=== PATIENT | male | born 1945 | race Caucasian/White ===

== ENCOUNTER 2016-12-22 19:34 | Emergency (ER) | payer MEDICARE ==
[~2016-12-22] VITALS: Ht 182.9 cm; Wt 87.3 kg
[~2016-12-22 19:34] MED LIST: CARD240C6; IBUP-238 PO; LORTA5 PO; TAB-TAB; TRAZ50TA78; ZOLO25TA
[2016-12-22 19:45] VITALS: BP 167/84; PULSE 72; RESP 12; TEMP 98.8; O2SAT 96
[2016-12-22] MEDS ORDERED: CARD240C6 PO (20:38)
[2016-12-22] MEDS ORDERED: TRAZ50TA12 PO (20:38)
[2016-12-22] MEDS ORDERED: PRED20 PO (20:38)
[2016-12-22] MEDS ORDERED: ASPI81TA11 PO (20:38)
[2016-12-22] MEDS ORDERED: RELP20TA PO (20:38)
[2016-12-22 21:42] LABS: AUTOMATED NEUTROPHIL # 3.7 TH/MM3 (1.8-7.7); BASOPHIL # 0.1 TH/MM3 (0-0.2); BASOPHIL % 0.8 % (0.0-2.0); EOSINOPHIL # 0.1 TH/MM3 (0-0.4); HEMATOCRIT 46.3 % (39.0-51.0); HEMO FLAGS DIFF FINAL; LYMPH % 40.3 % (9.0-44.0); LYMPHOCYTE # 3.2 TH/MM3 (1.0-4.8); MEAN CELL VOLUME 91.2 FL (80.0-100.0); MEAN CORPUSCULAR HEMOGLOBIN 30.8 PG (27.0-34.0); MEAN CORPUSCULAR HGB CONC 33.8 % (32.0-36.0); MONO % 11.2 % (0.0-8.0); NEUT % 46.7 % (16.0-70.0); PLATELET COUNT 137 TH/MM3 (150-450); RED BLOOD COUNT 5.07 MIL/MM3 (4.50-5.90); RED CELL DISTRIBUTION WIDTH 14.1 % (11.6-17.2)
--- NOTE | 2016-12-22 21:48 | PD ---
HPI Chief Complaint: Pain: Acute or Chronic Time Seen by Provider: 21:02 Travel History International Travel<30 days: No Contact w/Intl Traveler<30days: No Traveled to known affect area: No History of Present Illness HPI Patient is a 71 year old male who comes in complaining of pain and discoloration of his right first toe. He says that he noticed it was red this morning and then it turned purple. He says that he is intermittently having pain to the toe. He does not remember any injury to the toe. He says he only has history of high blood pressure. His is concerned he may have a blood clot, though he has never had one before. He does says that he had some tingling to the toe earlier today. PFSH Past Medical History Hx Anticoagulant Therapy: Yes Cardiovascular Problems: Yes Diminished Hearing: Yes Headaches: Yes (CLUSTER HEADACHES) Hypertension: Yes Immunizations Current: Yes Tetanus Vaccination: < 5 Years Influenza Vaccination: Yes Past Surgical History Surgical History: No Previous Surgery Social History Alcohol Use: Yes (RARE) Tobacco Use: Yes (6 CIGS) Substance Use: No Allergies-Medications (Allergen,Severity, Reaction): Coded Allergies: Penicillin (Verified Allergy, Unknown, Anaphylaxis, 12/22/16) Sulfa (Verified Allergy, Unknown, Anaphylaxis, 12/22/16) Reported Meds & Prescriptions Reported Meds & Active Scripts Active Reported Prednisone 20 Mg Tab 20 Mg PO DIRECTED 40 MG twice a day x 3 days, then 20 MG daily x 3 days, then 10 MG daily x 3 days Relpax (Eletriptan) 20 Mg Tab 20 Mg PO ONCE PRN Cardizem CD 24 HR (Diltiazem CD 24 HR) 240 Mg Caper 240 Mg PO DAILY Trazodone (Trazodone HCl) 50 Mg Tab 50 Mg PO HS Aspirin EC (Aspirin) 81 Mg Tabdr 81 Mg PO DAILY Review of Systems Except as stated in HPI: all other systems reviewed are Neg General / Constitutional: No: Fever, Chills HENT: No: Headaches, Lightheadedness Cardiovascular: No: Chest Pain or Discomfort, Palpitations Respiratory: No: Shortness of Breath Gastrointestinal: No: Nausea, Vomiting Musculoskeletal: Positive: Pain Skin: Positive Change in Pigmentation Neurologic: No: Weakness, Dizziness Physical Exam Narrative GENERAL: Awake and alert, in no acute distress. SKIN: Focused skin assessment warm/dry. 4cm circular area of ecchymosis on the plantar side of the right first toe. HEAD: Atraumatic. Normocephalic. EYES: Pupils equal and round. No scleral icterus. ENT: No nasal bleeding or discharge. Mucous membranes pink and moist. NECK: Trachea midline. No JVD. CARDIOVASCULAR: Regular rate and rhythm. No murmur appreciated. RESPIRATORY: No accessory muscle use. Clear to auscultation. Breath sounds equal bilaterally. MUSCULOSKELETAL: No obvious deformities. No clubbing. No cyanosis. No edema. Pedal pulses 2+ bilaterally. NEUROLOGICAL: Awake and alert. No obvious cranial nerve deficits. Motor grossly within normal limits. Normal speech. PSYCHIATRIC: Appropriate mood and affect; insight and judgment normal. Data Data Last Documented VS Vital Signs Date Time Temp Pulse Resp B/P Pulse Ox O2 Delivery O2 Flow Rate FiO2 12/23/16 00:11 72 16 12/23/16 00:10 156/82 97 Room Air 12/22/16 19:45 98.8 Orders Iv Access Insert/Monitor (12/22/16 21:06) Complete Blood Count With Diff (12/22/16 21:06) Comprehensive Metabolic Panel (12/22/16 21:06) Act Partial Throm Time (Ptt) (12/22/16 21:06) Prothrombin Time / Inr (Pt) (12/22/16 21:06) Cta Runoff W Iv Contrast W 3d (12/22/16 ) Foot, Complete ([id number]) (12/22/16 ) Electrocardiogram (12/22/16 ) Iohexol 350 Inj (Omnipaque 350 Inj) (12/22/16 23:00) Labs Laboratory Tests Test 12/22/16 21:28 White Blood Count 8.0 TH/MM3 Red Blood Count 5.07 MIL/MM3 Hemoglobin 15.6 GM/DL Hematocrit 46.3 % Mean Corpuscular Volume 91.2 FL Mean Corpuscular Hemoglobin 30.8 PG Mean Corpuscular Hemoglobin 33.8 % Concent Red Cell Distribution Width 14.1 % Platelet Count 137 TH/MM3 Mean Platelet Volume 8.6 FL Neutrophils (%) (Auto) 46.7 % Lymphocytes (%) (Auto) 40.3 % Monocytes (%) (Auto) 11.2 % Eosinophils (%) (Auto) 1.0 % Basophils (%) (Auto) 0.8 % Neutrophils # (Auto) 3.7 TH/MM3 Lymphocytes # (Auto) 3.2 TH/MM3 Monocytes # (Auto) 0.9 TH/MM3 Eosinophils # (Auto) 0.1 TH/MM3 Basophils # (Auto) 0.1 TH/MM3 CBC Comment DIFF FINAL Differential Comment Prothrombin Time 11.5 SEC Prothromb Time International 1.0 RATIO Ratio Activated Partial 28.2 SEC Thromboplast Time Sodium Level 144 MEQ/L Potassium Level 3.7 MEQ/L Chloride Level 108 MEQ/L Carbon Dioxide Level 29.8 MEQ/L Anion Gap 6 MEQ/L Blood Urea Nitrogen 20 MG/DL Creatinine 1.20 MG/DL Estimat Glomerular Filtration 60 ML/MIN Rate Random Glucose 170 MG/DL Calcium Level 8.9 MG/DL Total Bilirubin 0.7 MG/DL Aspartate Amino Transf 10 U/L (AST/SGOT) Alanine Aminotransferase 24 U/L (ALT/SGPT) Alkaline Phosphatase 65 U/L Total Protein 6.3 GM/DL Albumin 3.2 GM/DL [facility] Medical Decision Making Medical Screen Exam Complete: Yes Emergency Medical Condition: Yes Medical Record Reviewed: Yes Interpretation(s) ECG shows normal sinus rhythm with frequent PVCs Differential Diagnosis Injury versus cellulitis versus necrosis Narrative Course Patient is a 71-year-old male who comes in complaining of pain and discoloration to his toe. Exam shows an area of ecchymosis to the plantar surface of the toe. IV established, labs sent. X-ray performed shows no acute abnormalities. CTA with runoff ordered to check for clots and to check the blood flow. Patient does have pedal pulses. Patient became angry waiting for the scan and the results. He told the nurse she was leaving and he walked out of the emergency department. I had explained to him that we were checking for clots and blood flow to his foot. He was alert and oriented 3. He understood the risks of leaving AGAINST MEDICAL ADVICE. AMA: The risks of leaving against medical advice without further evaluation treatment were discussed with the patient. These risks include cardiac dysfunction, cardiac dysrhythmia, possible heart attack, possible stroke or . The patient indicated understanding of these risks and appeared to have the capacity to make this decision. Diagnosis Primary Impression: Left against medical advice Disposition: 07 AGAINST MEDICAL ADVICE Condition: Stable Peyton Adams MD Dec 22, 2016 21:48
[2016-12-22 21:51] LABS: CHLORIDE 108 MEQ/L (98-107); POTASSIUM 3.7 MEQ/L (3.5-5.1); SODIUM (NA) 144 MEQ/L (136-145)
[2016-12-22 21:56] LABS: ANION GAP 6 MEQ/L (5-15); APTT (PATIENT) 28.2 SEC (24.3-30.1); BICARBONATE 29.8 MEQ/L (21.0-32.0); BLOOD UREA NITROGEN 20 MG/DL (7-18); PROTHROMBIN TIME - PATIENT 11.5 SEC (9.8-11.6)
[2016-12-22 21:58] LABS: ALT (GPT) 24 U/L (12-78)
[2016-12-22 21:59] LABS: AST (GOT) 10 U/L (15-37); GLOMERULAR FILTRATION RATE 60 ML/MIN (>89)
[2016-12-22 22:00] LABS: TOTAL BILIRUBIN ADULT 0.7 MG/DL (0.2-1.0)
[2016-12-22 22:01] LABS: ALKALINE PHOSPHATASE 65 U/L (45-117)
--- NOTE | 2016-12-22 22:19 | RADRPT ---
EXAM DATE/TIME: 12/22/2016 21:13 [facility] COMPARISON: No previous studies available for comparison. INDICATIONS : Right great toe pain. MEDICAL HISTORY : None. SURGICAL HISTORY : None. ENCOUNTER: Initial ACUITY: 1 day PAIN SCORE: 3/10 LOCATION: Right foot, great toe. FINDINGS: Three view examination of the right foot demonstrates no soft tissue swelling, dislocation, or fractu re. The tarsal bones appear intact. The interphalangeal and metatarsophalangeal joints are intact. The calcaneus is intact. Bony mineralization is normal. CONCLUSION: Negative exam. Fabricio Stout MD on December 22, 2016 at 22:17 Board Certified Radiologist. This report was verified electronically.
[2016-12-22 23:00] VITALS: BP 155/82; PULSE 72; RESP 16; O2SAT 97
[2016-12-22] MEDS ORDERED: IOHEXOL 350 MG/ML 10 ML VIAL (for RAD DIAG) IV ONE (23:00)
[2016-12-23 00:10] VITALS: BP 156/82; PULSE 72; RESP 16; O2SAT 97
--- NOTE | 2016-12-23 08:22 | RADRPT ---
EXAM DATE/TIME: 12/22/2016 23:18 [facility] COMPARISON: CTA RUNOFF W 3D RECON, December 22, 2016, 23:18. INDICATIONS : Evaluate for embolism. Right great toe discoloration and pain. IV CONTRAST: 100 cc Omnipaque 350 (iohexol) IV RADIATION DOSE: 11.92 CTDIvol (mGy) MEDICAL HISTORY : Cardiovascular disease. Hypertension. SURGICAL HISTORY : None. ENCOUNTER: Initial ACUITY: 1 day PAIN SCALE: 4/10 LOCATION: Right great toe TECHNIQUE: Volumetric scanning was performed using a multi-row detector CT scanner. The data was post processed with a variety of visualization algorithms including full volume maximum intensity projection, multi -planar sliding thin slab reformation, curved planar reformation, and surface rendering techniques. Using automated exposure control and adjustment of the mA and/or kV according to patient size, radiat ion dose was kept as low as reasonably achievable to obtain optimal diagnostic quality images. DICO M format image data is available electronically for review and comparison. FINDINGS: Aorta/inflow: Diffuse calcified and noncalcified atheromatous plaque is seen throughout the infrarenal aorta. This generates an irregular luminal contour. There is mild fusiform dilatation of the infrarenal aorta lily irving a maximum diameter of 3.4 x 3.1 cm. The inflow vessels are calcified but patent. Internal iliac arteries are patent bilaterally. The celiac, SMA, SUNITHA, and renal arteries are patent. Right lower extremity: The outflow and runoff vessels show scattered calcified plaque. No hemodynamically significant stenos is. 3 vessel runoff to the foot. Left lower extremity The outflow and runoff vessels show scattered calcified plaque. No hemodynamical ly significant stenosis. A 40% stenosis is seen involving the popliteal artery. 3 vessel runoff to th e foot.: Other structures: A 2 cm cyst is seen involving segment 4 of the liver. Hounsfield units are 7. Bilateral renal cysts a re observed. The largest involves the right midpole measuring 4.9 cm. CONCLUSION: 1. 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 2. Patent inflow, outflow, and runoff bilaterally. 3. Hepatic and bilateral renal cysts. Fabricio Bliss Jr., MD on December 23, 2016 at 8:09 Board Certified Radiologist. This report was verified electronically.
--- NOTE | 2016-12-23 15:14 | EKG ---
Date Performed: 12/22/2016 Time Performed: 21:58:24 PTAGE: 71 years EKG: Sinus rhythm WITH FREQUENT VENTRICULAR PREMATURE COMPLEXES MARKED LEFT AXIS DEVIATION LOW QRS VOLTAGE IN PRECORDI AL LEADS POSSIBLE RIGHT VENTRICULAR CONDUCTION DELAY Clinical correlation is recommended ABNORMAL ECG NO PREVIOUS TRACING DOCTOR: Justin Mitchell Interpretating Date/Time 12/23/2016 15:12:57
== END 2016-12-23 01:15 | disposition left against medical advice (07) ==
LOC: PHED 19:34 → MERGE 19:34 → PHEFT 12-23 01:15
DX: M79.674 Pain in right toe(s) (principal); R94.31 Abnormal electrocardiogram [ECG] [EKG]; I10 Essential (primary) hypertension; Z72.0 Tobacco use; Z79.01 Long term (current) use of anticoagulants; Z86.79 Personal history of other diseases of the circulatory system; Z53.29 Procedure and treatment not carried out because of patient's decision for other reasons
CPT/HCPCS: 73630; 75635; 80053; 85025; 85610; 85730; 93005; 99285; Q9967